=== PATIENT | male | born 1965 | race Caucasian/White ===

== ENCOUNTER 2017-10-04 14:44 | Emergency (ER) | payer OTHER ==
[2017-10-04] MEDS ORDERED: Sodium Chloride 0.9% 10 ML Syringe FLUSH PRN (15:17)
[2017-10-04 16:23] VITALS: BP 139/76
--- NOTE | 2017-10-04 16:36 | EDM.PDOC ---
ED HPI GENERAL MEDICAL PROBLEM - General Chief Complaint: Chest Pain Stated Complaint: CHEST PAIN Time Seen by Provider: 10/04/17 14:44 Source of Information: Reports: Patient, Provider History Limitations: Reports: No Limitations - History of Present Illness INITIAL COMMENTS - FREE TEXT/NARRATIVE: One of the clinic doctors called over about this patient's who is been having some chest pain. He had 2 stents placed in the circumflex artery in July 2016. His pain started 2 days ago and occurred after doing some workout in the gym. He describes the pain in the left precordial area tightness in the neck and pain rating radiating back to the left scapula. He did take some nitroglycerin but it didn't seem to help. He takes aspirin 81 mg daily as well as Plavix 75 mg daily and he has not missed any of his medications. The pain he' s having now is very similar to what he had previously. It's noted that the there were both fixed and reversible defects in the septum on the nuclear stress test. He underwent stent placement at the [facility] and had 2 stents placed in the circumflex artery. He has a long-standing left bundle branch block Left Shoulder Pain Score (Numeric/FACES): 1 - Related Data Allergies Allergy/AdvReac Type Severity Reaction Status Date / Time erythromycin base Allergy Stomach Verified 10/04/17 14:53 Upset Home Meds: Home Meds Allopurinol [Allopurinol] 300 mg PO DAILY 07/05/15 [History] Esomeprazole Magnesium [Nexium] 20 mg PO DAILY 07/05/15 [History] Albuterol Sulfate [Proair Hfa] 2 puff IH Q4H PRN 05/03/16 [History] Aspirin [Halfprin] 81 mg PO DAILY 05/03/16 [History] Cetirizine [ZyrTEC] 10 mg PO DAILY 05/03/16 [History] Ibuprofen 200 mg PO Q6H PRN 05/03/16 [History] Metoprolol Tartrate [Lopressor] 50 mg PO BID 05/03/16 [History] Nitroglycerin [Nitrostat] 0.4 mg SL ASDIRECTED PRN 05/03/16 [History] amLODIPine Besylate [Norvasc] 5 mg PO DAILY 05/03/16 [History] Clopidogrel Bisulfate [Clopidogrel] 1 tab PO DAILY 10/04/17 [History] atorvaSTATin [Lipitor] 1 tab PO BEDTIME 10/04/17 [History] Past Medical History HEENT History: Reports: Impaired Vision Cardiovascular History: Reports: CAD, High Cholesterol, Hypertension, [place], Stents Respiratory History: Reports: Asthma Gastrointestinal History: Reports: GERD Neurological History: Reports: Migraines - Past Surgical History HEENT Surgical History: Reports: Tonsillectomy Cardiovascular Surgical History: Reports: Coronary Artery Stent Other Cardiovascular Surgeries/Procedures: Angiogram 2010 Social & Family History - Tobacco Use Smoking Status *Q: Never Smoker Second Hand Smoke Exposure: No - Recreational Drug Use Recreational Drug Use: No ED ROS GENERAL - Review of Systems Review Of Systems: ROS reveals no pertinent complaints other than HPI. ED EXAM, GENERAL - Physical Exam Exam: See Below Exam Limited By: No Limitations General Appearance: Alert, WD/WN, No Apparent Distress Eye Exam: Bilateral Eye: Normal Inspection Throat/Mouth: Normal Inspection Respiratory/Chest: Lungs Clear, Chest Non-Tender Cardiovascular: Normal Peripheral Pulses, Regular Rate, Rhythm Back Exam: Normal Inspection Extremities: Normal Inspection, Normal Range of Motion, No Pedal Edema Neurological: Alert, Oriented Psychiatric: Normal Affect, Normal Mood Skin Exam: Warm, Dry Course - Vital Signs Last Recorded V/S: Last Vital Signs Temp 97.6 C H 10/04/17 14:50 Pulse 59 L 10/04/17 16:22 Resp 14 10/04/17 16:22 BP 139/76 10/04/17 16:22 Pulse Ox 98 10/04/17 16:22 - Orders/Labs/Meds Orders: Active Orders 24 hr Category Date Time Status EKG Documentation Completion [RC] ASDIRECTED Care 10/04/17 15:17 Ordered Chest 1V Frontal [CR] Urgent Exams 10/04/17 15:17 Ordered Sodium Chloride 0.9% [Saline Flush] Med 10/04/17 15:17 Ordered 10 ml FLUSH ASDIRECTED PRN Saline Lock Insert [OM.PC] Urgent Oth 10/04/17 15:17 Ordered EKG 12 Lead [EK] Urgent Ther 10/04/17 15:17 Ordered Medication Orders Sodium Chloride (Saline Flush) 10 ml FLUSH ASDIRECTED PRN PRN Reason: Keep Vein Open Labs: Laboratory Tests 10/04/17 10/04/17 Range/Units 15:17 15:17 WBC 6.2 (4.5-11.0) K/uL RBC 4.91 (4.30-5.90) M/uL Hgb 15.5 H (12.0-15.0) g/dL Hct 44.6 (40.0-54.0) % MCV 91 (80-98) fL MCH 32 H (27-31) pg MCHC 35 (32-36) % Plt Count 181 (150-400) K/uL Neut % (Auto) 58 (36-66) % Lymph % (Auto) 28 (24-44) % [place] % (Auto) 9 H (2-6) % Eos % (Auto) 5 H (2-4) % Baso % (Auto) 1 (0-1) % Sodium 139 L (140-148) mmol/L Potassium 4.3 (3.6-5.2) mmol/L Chloride 105 (100-108) mmol/L Carbon Dioxide 29 (21-32) mmol/L Anion Gap 9.3 (5.0-14.0) mmol/L BUN 20 H (7-18) mg/dL Creatinine 1.1 (0.8-1.3) mg/dL Est Cr Clr Drug Dosing 79.45 mL/min Estimated GFR (MDRD) > 60 (>60) Glucose 117 H (74-106) mg/dL Calcium 9.0 (8.5-10.1) mg/dL Total Bilirubin 0.4 (0.2-1.0) mg/dL AST 29 (15-37) U/L ALT 50 (12-78) U/L Alkaline Phosphatase 69 (46-116) U/L Troponin I < 0.017 (0.000-0.056) ng/mL Total Protein 6.4 (6.4-8.2) g/dL Albumin 3.8 (3.4-5.0) g/dL Globulin 2.6 (2.3-3.5) g/dL Albumin/Globulin Ratio 1.5 (1.2-2.2) Meds: Medications Generic Name Dose Route Start Last Admin Trade Name Freq PRN Reason Stop Dose Admin Sodium Chloride 10 ml 10/04/17 15:17 Saline Flush FLUSH ASDIRECTED PRN Keep Vein Open - Radiology Interpretation Free Text/Narrative:: Chest x-ray shows no acute abnormalities. There is a nodule in the right chest but that's been biopsied previously and has not changed since 2015 - Re-Assessments/Exams Free Text/Narrative Re-Assessment/Exam: 10/04/17 16:42 EKG shows sinus rhythm at 54 bpm with left bundle branch block labs are unremarkable and troponin is negative. Patient's just had some vague minor discomfort here in the emergency department and has not experienced any severe pain. I spoke with Dr. West the [employer] retailer sales consultant at [facility] and he would like to do a rule out [place] inpatient and would like him transferred to the [facility]. He has we go ahead and give him aspirin 600 Plavix if he's not oriented course he is taking Plavix now as well as heparin drip and bolus and those interventions have been begun. Departure - Departure Time of Disposition: 16:44 Disposition: DC/Tfer to Acute Hospital 02 Reason for Transfer *Q: Primary PCI Indicated Condition: Fair Clinical Impression: Acute coronary syndrome Referrals: Kami Estes MD [Primary Care Provider] - - My Orders Last 24 Hours: My Active Orders 10/04/17 15:17 EKG Documentation Completion [RC] ASDIRECTED Chest 1V Frontal [CR] Urgent Sodium Chloride 0.9% [Saline Flush] 10 ml FLUSH ASDIRECTED PRN Saline Lock Insert [OM.PC] Urgent EKG 12 Lead [EK] Urgent - Assessment/Plan Last 24 Hours: My Active Orders 10/04/17 15:17 EKG Documentation Completion [RC] ASDIRECTED Chest 1V Frontal [CR] Urgent Sodium Chloride 0.9% [Saline Flush] 10 ml FLUSH ASDIRECTED PRN Saline Lock Insert [OM.PC] Urgent EKG 12 Lead [EK] Urgent
[2017-10-04] MEDS ORDERED: Aspirin 81 MG Tab.Chew PO ONE (16:45)
[2017-10-04] MEDS ORDERED: Heparin Sodium 5,000 Units/ML Vial IVPUSH ONE (16:47)
[2017-10-04] MEDS ORDERED: Heparin Sodium/D5W 25,000 UNITS/500 ML BAG IV SCH ×2 (17:00→18:00)
--- NOTE | 2017-10-05 09:03 | CR ---
Chest 1V Frontal HISTORY: Pain COMPARISON: Chest x-ray 07/05/2015. CT scan 08/21/2012 FINDINGS: Nodular density right lower lung zone unchanged or less apparent than prior studies likely representing scarring. This appeared to of been larger on prior CT scan. No new infiltrates. Cardiac size and pulmonary vessels normal. Impression: Probable scarring right lower lung zone. This was seen on CT scan 2011 and favors granulomatous scarr ing. On 2012 CT scan there was some adjacent areas of nodularity also less apparent on today's study. This does not appear to be an acute process. No acute infiltrates.
== END 2017-10-04 17:25 ==
LOC: JP.ED 14:44
DX: I24.9 Acute ischemic heart disease, unspecified (principal); E78.00 Pure hypercholesterolemia, unspecified; I10 Essential (primary) hypertension; Z88.1 Allergy status to other antibiotic agents; Z79.899 Other long term (current) drug therapy; Z79.82 Long term (current) use of aspirin
CPT/HCPCS: 36415; 71045; 80053; 84484; 85025; 93005; 96374; 99285; A9270; J1644; J7050

== ENCOUNTER 2019-10-28 06:29 | Day surgery (SDC) | payer OTHER ==
[2019-10-28] MEDS ORDERED: Sodium Chloride 0.9% 1,000 ML IV SCH (07:00)
[2019-10-28] MEDS ORDERED: fentaNYL 100 MCG/2 ML SDV ONE (07:16)
[2019-10-28] MEDS ORDERED: Midazolam 1 MG/ML 2 ML SDV ONE (07:17)
[2019-10-28] MEDS ORDERED: Propofol 200 MG/20 ML SDV ONE (07:17)
[2019-10-28 09:37] VITALS: BP 114/74; PULSE 49
--- NOTE | 2019-10-28 11:23 | PROC ---
DATE OF PROCEDURE: 10/28/2019 SURGEON: Juan Manuel Dave MD PROCEDURE: Colonoscopy. PREPROCEDURE DIAGNOSIS: Screening colonoscopy. POSTPROCEDURE DIAGNOSES: 1. Screening colonoscopy. 2. Pandiverticulosis. 3. Mild limited sigmoid colitis. DESCRIPTION OF PROCEDURE: Risks and goals of procedure reviewed with the patient, and he gave informed consent to proceed. He was brought back to the endoscopy room. Sedation and monitoring provided by the Anesthesia Service. Time-out was held prior to the procedure to confirm right patient, right site, right procedure, and identify any specific concerns about the procedure, of which there were none. He was placed in left lateral decubitus position. After adequate sedation was achieved, digital rectal exam was performed, which was unremarkable. Following this, a flexible colonoscope was placed and advanced out through the colon to the cecum. Scope was then slowly withdrawn through the length of the colon to the rectum, where it was retroflexed, straightened, and removed. He was noted to have pandiverticulosis throughout the length of the colon including ascending, transverse, descending, and sigmoid colon. There was a limited area of mild colitis and inflammation in the sigmoid colon at approximately 20 cm to 30 cm. Biopsies were obtained through this area. Procedure was, otherwise, completed without complication. He will be monitored in PAR in outpatient area until fully recovered from IV sedation and discharged home. Pathologic review of the biopsy specimens is pending at this time. Juan Manuel Dave MD /[id number]
== END 2019-10-28 09:15 | disposition home or self-care (01) ==
LOC: JP.SDS 06:29
PROVIDERS: ATTEND Hospitalist
DX: Z12.11 Encounter for screening for malignant neoplasm of colon (principal); K57.30 Diverticulosis of large intestine without perforation or abscess without bleeding; K52.9 Noninfective gastroenteritis and colitis, unspecified; J45.909 Unspecified asthma, uncomplicated; Z88.1 Allergy status to other antibiotic agents
CPT/HCPCS: 45378; J2250; J2704; J3010; J7030; 88305

== ENCOUNTER 2020-06-05 23:33 | Emergency (ER) | payer OTHER ==
[2020-06-05 23:49] VITALS: BP 158/80; PULSE 61
--- NOTE | 2020-06-06 00:05 | EDM.PDOC ---
ED HPI GENERAL MEDICAL PROBLEM - General Chief Complaint: Chest Pain Stated Complaint: CHEST PAIN Time Seen by Provider: 06/05/20 23:35 Source of Information: Reports: Patient, Family History Limitations: Reports: No Limitations - History of Present Illness INITIAL COMMENTS - FREE TEXT/NARRATIVE: 54-year-old male with known coronary artery disease, history of stent placement x2 has been having increasing chest pain over the past month. Today he had significant and recurring pain especially while active and tonight seemed to respond to nitroglycerin so came in to be seen. He is feeling better now. He does not get short of breath, but he does get diaphoretic with nausea when he is having the pain. It feels similar to symptoms he had prior to getting stents in the past. He received stents in 2016, and 2018. Onset: Unknown/Unsure (Past been getting recurrent symptoms for weeks) Location: Reports: Chest Improves with: Reports: Other (Nitroglycerin seemed to improve his pain) Worsens with: Reports: Other (Worsening of the pain is somewhat random and not necessarily related to activity) Associated Symptoms: Reports: Diaphoresis, Nausea/Vomiting (Nausea but no vomiting). Denies: Shortness of Breath chest pain Pain Score (Numeric/FACES): 3 - Related Data Allergies Allergy/AdvReac Type Severity Reaction Status Date / Time bacitracin Allergy Rash Verified 06/05/20 23:39 erythromycin base Allergy Stomach Verified 06/05/20 23:39 Upset Home Meds: Home Meds allopurinoL [Allopurinol] 300 mg PO DAILY 07/05/15 [History] Albuterol Sulfate [Proair Hfa] 2 puff IH Q4H PRN 05/03/16 [History] Aspirin [Halfprin] 81 mg PO DAILY 05/03/16 [History] Ibuprofen 200 mg PO Q6H PRN 05/03/16 [History] Metoprolol Tartrate [Lopressor] 50 mg PO DAILY 05/03/16 [History] Nitroglycerin [Nitrostat] 0.4 mg SL ASDIRECTED PRN 05/03/16 [History] atorvaSTATin [Lipitor] 80 mg PO DAILY 10/04/17 [History] lisinopriL [Lisinopril] 2.5 mg PO DAILY 10/24/19 [History] Past Medical History HEENT History: Reports: Allergic Rhinitis, Impaired Vision Cardiovascular History: Reports: CAD, High Cholesterol, Hypertension, [place], Stents Respiratory History: Reports: Asthma, Bronchitis, Recurrent Gastrointestinal History: Reports: GERD Musculoskeletal History: Reports: Fracture Neurological History: Reports: Migraines - Past Surgical History HEENT Surgical History: Reports: Eye Surgery, Tonsillectomy Cardiovascular Surgical History: Reports: Coronary Artery Stent Other Cardiovascular Surgeries/Procedures: Angiogram 2010 Respiratory Surgical History: Reports: None GI Surgical History: Reports: None Neurological Surgical History: Reports: None Musculoskeletal Surgical History: Reports: None Social & Family History - Caffeine Use Caffeine Use: Reports: Coffee ED ROS GENERAL - Review of Systems Review Of Systems: See Below Constitutional: Reports: Malaise. Denies: Fever, Chills HEENT: Reports: No Symptoms Respiratory: Denies: Shortness of Breath Cardiovascular: Reports: Chest Pain. Denies: Palpitations GI/Abdominal: Reports: Nausea. Denies: Abdominal Pain, Vomiting Skin: Reports: Diaphoresis Neurological: Reports: No Symptoms Psychiatric: Reports: No Symptoms ED EXAM, GENERAL - Physical Exam Exam: See Below Exam Limited By: No Limitations General Appearance: Alert, No Apparent Distress Eye Exam: Bilateral Eye: Normal Inspection Head: Atraumatic Neck: Supple, Non-Tender Respiratory/Chest: Lungs Clear Cardiovascular: Regular Rate, Rhythm GI/Abdominal: Soft, Non-Tender Extremities: Normal Inspection. No: Pedal Edema Neurological: Alert, Oriented Psychiatric: Normal Affect, Normal Mood Skin Exam: Warm, Dry EKG INTERPRETATION QRS: LBBB Comparison: No Change (No significant change from September 2017) Course - Vital Signs Last Recorded V/S: Last Vital Signs Temp 97.4 F 06/05/20 23:50 Pulse 61 06/05/20 23:50 Resp 11 L 06/05/20 23:50 BP 158/80 H 06/05/20 23:50 Pulse Ox 96 06/05/20 23:50 - Orders/Labs/Meds Orders: Active Orders 24 hr Category Date Time Status EKG 12 Lead [EK] Routine Ther 06/05/20 23:53 Ordered Labs: Laboratory Tests 06/05/20 06/05/20 06/05/20 Range/Units 23:55 23:55 23:55 WBC 8.9 (4.5-11.0) K/uL RBC 4.91 (4.30-5.90) M/uL Hgb 14.9 (12.0-15.0) g/dL Hct 45.2 (40.0-54.0) % MCV 92 (80-98) fL MCH 30 (27-31) pg MCHC 33 (32-36) % Plt Count 212 (150-400) K/uL Neut % (Auto) 50 (36-66) % Lymph % (Auto) 31 (24-44) % [place] % (Auto) 11 H (2-6) % Eos % (Auto) 7 H (2-4) % Baso % (Auto) 1 (0-1) % Sodium 138 L (140-148) mmol/L Potassium 3.5 L (3.6-5.2) mmol/L Chloride 103 (100-108) mmol/L Carbon Dioxide 26 (21-32) mmol/L Anion Gap 12.5 (5.0-14.0) mmol/L BUN 29 H (7-18) mg/dL Creatinine 1.2 (0.8-1.3) mg/dL Est Cr Clr Drug Dosing TNP Estimated GFR (MDRD) > 60 (>60) Glucose 128 H (74-106) mg/dL Calcium 8.9 (8.5-10.1) mg/dL Total Bilirubin 0.3 (0.2-1.0) mg/dL AST 27 (15-37) U/L ALT 62 (12-78) U/L Alkaline Phosphatase 69 (46-116) U/L Troponin I < 0.017 (0.000-0.056) ng/mL Total Protein 6.7 (6.4-8.2) g/dL Albumin 3.7 (3.4-5.0) g/dL Globulin 3.0 (2.3-3.5) g/dL Albumin/Globulin Ratio 1.2 (1.2-2.2) - Re-Assessments/Exams Free Text/Narrative Re-Assessment/Exam: 06/06/20 00:04 Patient is already had a full dose aspirin today, after 2 nitroglycerin he is having no pain so no further treatment was given initially in the emergency room. Initial EKG showed a left bundle branch block consistent with findings in September 2017. CBC CMP and troponin were obtained. 06/06/20 01:21 Labs were normal, troponin was 0. Patient's pain did not return. He will continue his medications, and [facility]wood Sapp was contacted to have cardiology call him on Monday to set up an appointment to discuss whether any further studies are indicated. His pain returns and is persistent he will return. Continue his medication. 06/06/20 01:59 Patient was supplied with a fresh prescription of nitroglycerin. If he does not hear from cardiology by Monday afternoon, I encouraged him to call [facility] or Dr. De La Rosa in [place] to try to set up follow-up. Departure - Departure Time of Disposition: 01:24 Disposition: Home, Self-Care 01 Clinical Impression: Atypical chest pain - Discharge Information Instructions: Nonspecific Chest Pain, Adult, [id number] Referrals: Oren De La Rosa MD [Primary Care Provider] - Forms: ED Department Discharge Care Plan Goals: Continue your current medications, use nitroglycerin as needed for recurring pain and return to the emergency room if pain is persistent. You should be contacted by [facility] cardiology on Monday, if you do not hear from them call Dr. De La Rosa for recheck appointment. Sepsis Event Note (ED) - Evaluation Sepsis Screening Result: No Definite Risk - Focused Exam Vital Signs: Vital Signs Temp Pulse Resp BP Pulse Ox 06/05/20 23:50 97.4 F 61 11 L 158/80 H 96 06/05/20 23:39 97.4 F 61 11 L 158/80 H 96 - My Orders Last 24 Hours: My Active Orders 06/05/20 23:53 EKG 12 Lead [EK] Routine - Assessment/Plan Last 24 Hours: My Active Orders 06/05/20 23:53 EKG 12 Lead [EK] Routine
== END 2020-06-06 01:31 | disposition home or self-care (01) ==
LOC: JP.ED 23:33
DX: R07.89 Other chest pain (principal); I25.10 Atherosclerotic heart disease of native coronary artery without angina pectoris; E78.00 Pure hypercholesterolemia, unspecified; I10 Essential (primary) hypertension; I25.2 Old myocardial infarction; J45.909 Unspecified asthma, uncomplicated; Z95.5 Presence of coronary angioplasty implant and graft; Z88.1 Allergy status to other antibiotic agents; Z79.82 Long term (current) use of aspirin; Z79.899 Other long term (current) drug therapy
CPT/HCPCS: 36415; 80053; 84484; 85025; 93005; 93010; 99284; 99285-25

== ENCOUNTER 2021-02-21 07:43 | Emergency (ER) | payer OTHER ==
[2021-02-21 08:02] VITALS: BP 128/67; PULSE 53
[2021-02-21] MEDS ORDERED: Ketorolac 30 MG/ML SDV IVPUSH ONE (08:09)
[2021-02-21] MEDS ORDERED: Sodium Chloride 0.9% 10 ML Syringe FLUSH PRN (08:09)
[2021-02-21] MEDS ORDERED: Ondansetron 4 MG/2 ML SDV IVPUSH ONE (08:09)
--- NOTE | 2021-02-21 08:12 | EDM.PDOC ---
ED HPI GENERAL MEDICAL PROBLEM - General Chief Complaint: Flank Pain Stated Complaint: PAIN ON LEFT SIDE Time Seen by Provider: 02/21/21 08:07 Source of Information: Reports: Patient, Family, RN Notes Reviewed History Limitations: Reports: No Limitations - History of Present Illness INITIAL COMMENTS - FREE TEXT/NARRATIVE: 55-year-old gentleman presents emergency department day complaint of left flank pain, he states it come on early this morning is very intense starts in the back radiates around to the front he does have nausea but no vomiting does have a history of stones as well Left Flank Pain Score (Numeric/FACES): 10 - Related Data Allergies Allergy/AdvReac Type Severity Reaction Status Date / Time bacitracin Allergy Rash Verified 06/05/20 23:39 erythromycin base Allergy Stomach Verified 06/05/20 23:39 Upset Home Meds: Home Meds allopurinoL [Allopurinol] 300 mg PO DAILY 07/05/15 [History] Albuterol Sulfate [Proair Hfa] 2 puff IH Q4H PRN 05/03/16 [History] Aspirin [Halfprin] 81 mg PO DAILY 05/03/16 [History] Ibuprofen 200 mg PO Q6H PRN 05/03/16 [History] Metoprolol Tartrate [Lopressor] 50 mg PO DAILY 05/03/16 [History] Nitroglycerin [Nitrostat] 0.4 mg SL ASDIRECTED PRN 05/03/16 [History] atorvaSTATin [Lipitor] 80 mg PO DAILY 10/04/17 [History] lisinopriL [Lisinopril] 2.5 mg PO DAILY 10/24/19 [History] Past Medical History HEENT History: Reports: Allergic Rhinitis, Impaired Vision Other HEENT History: scleral lens Cardiovascular History: Reports: CAD, High Cholesterol, Hypertension, [place], Stents Other Cardiovascular History: LBBB Respiratory History: Reports: Asthma, Bronchitis, Recurrent Gastrointestinal History: Reports: GERD Musculoskeletal History: Reports: Fracture Neurological History: Reports: Migraines - Infectious Disease History Infectious Disease History: Reports: Chicken Pox - Past Surgical History HEENT Surgical History: Reports: Eye Surgery, Tonsillectomy Cardiovascular Surgical History: Reports: Coronary Artery Stent Other Cardiovascular Surgeries/Procedures: Angiogram 2010 Respiratory Surgical History: Reports: None GI Surgical History: Reports: None Neurological Surgical History: Reports: None Musculoskeletal Surgical History: Reports: None Social & Family History - Tobacco Use Tobacco Use Status *Q: Never Tobacco User - Caffeine Use Caffeine Use: Reports: Coffee - Recreational Drug Use Recreational Drug Use: No ED ROS GENERAL - Review of Systems Review Of Systems: See Below Constitutional: Reports: No Symptoms HEENT: Reports: No Symptoms Respiratory: Reports: No Symptoms Cardiovascular: Reports: No Symptoms GI/Abdominal: Reports: Nausea. Denies: Vomiting : Reports: Flank Pain ED EXAM, RENAL/ - Physical Exam Exam: See Below Exam Limited By: No Limitations General Appearance: Alert, Mild Distress Respiratory/Chest: No Respiratory Distress, Lungs Clear, Normal Breath Sounds, No Accessory Muscle Use, Chest Non-Tender Cardiovascular: Regular Rate, Rhythm, No Murmur GI/Abdominal: Soft, No Distention, Tender (Along the left flank). No: Guarding, Rigid Course - Vital Signs Last Recorded V/S: Last Vital Signs Temp 94.7 F L 02/21/21 08:03 Pulse 53 L 02/21/21 08:03 Resp 18 02/21/21 08:03 BP 128/67 02/21/21 08:03 Pulse Ox 98 02/21/21 08:03 - Orders/Labs/Meds Orders: Active Orders 24 hr Category Date Time Status Peripheral IV Care [RC] . DIRECTED Care 02/21/21 08:10 Active Sodium Chloride 0.9% [Saline Flush] Med 02/21/21 08:09 Active 10 ml FLUSH ASDIRECTED PRN Peripheral IV Insertion Adult [OM.PC] Urgent Oth 02/21/21 08:09 Ordered Medication Orders Sodium Chloride (Sodium Chloride 0.9% 10 Ml Syringe) 10 ml FLUSH ASDIRECTED PRN PRN Reason: Keep Vein Open Last Admin: 02/21/21 08:17 Dose: 10 ml Documented by: SILVANO Meds: Medications Generic Name Dose Route Start Last Admin Trade Name Freq PRN Reason Stop Dose Admin Sodium Chloride 10 ml 02/21/21 08:09 02/21/21 08:17 Sodium Chloride 0.9% 10 Ml Syringe FLUSH 10 ml ASDIRECTED PRN Administration Keep Vein Open Discontinued Medications Generic Name Dose Route Start Last Admin Trade Name Freq PRN Reason Stop Dose Admin Fentanyl 50 mcg 02/21/21 09:28 Fentanyl 100 Mcg/2 Ml Sdv IVPUSH 02/21/21 09:29 ONETIME ONE Ketorolac Tromethamine 30 mg 02/21/21 08:09 02/21/21 08:17 Ketorolac 30 Mg/Ml Sdv IVPUSH 02/21/21 08:10 30 mg ONETIME ONE Administration Ondansetron HCl 4 mg 02/21/21 08:09 02/21/21 08:17 Ondansetron 4 Mg/2 Ml Sdv IVPUSH 02/21/21 08:10 4 mg ONETIME ONE Administration Tamsulosin HCl 0.4 mg 02/21/21 09:28 Tamsulosin 0.4 Mg Cap.Er PO 02/21/21 09:29 ONETIME ONE Departure - Departure Time of Disposition: 09:30 Disposition: Home, Self-Care 01 Condition: Fair Clinical Impression: Nephrolithiasis - Discharge Information Instructions: Kidney Stones, [id number] Referrals: Oren De La Rosa MD [Primary Care Provider] - Forms: ED Department Discharge Additional Instructions: Use Toradol for baseline pain control, use hydrocodone for breakthrough pain, continue to take the Flomax daily to help with passage of the stone, please followup with your primary care provider in 3-5 days if not better, please call return to the emergency department with worsening of symptoms. Sepsis Event Note (ED) - Evaluation Sepsis Screening Result: No Definite Risk - Focused Exam Vital Signs: Vital Signs Temp Pulse Resp BP Pulse Ox 02/21/21 08:03 94.7 F L 53 L 18 128/67 98 02/21/21 08:01 94.7 F L 53 L 18 128/67 98 - My Orders Last 24 Hours: My Active Orders 02/21/21 08:09 Sodium Chloride 0.9% [Saline Flush] 10 ml FLUSH ASDIRECTED PRN Peripheral IV Insertion Adult [OM.PC] Urgent 02/21/21 08:10 Peripheral IV Care [RC] . DIRECTED - Assessment/Plan Last 24 Hours: My Active Orders 02/21/21 08:09 Sodium Chloride 0.9% [Saline Flush] 10 ml FLUSH ASDIRECTED PRN Peripheral IV Insertion Adult [OM.PC] Urgent 02/21/21 08:10 Peripheral IV Care [RC] . DIRECTED Plan: Assessment Acuity = acute Site and laterality = nephrolithiasis Etiology = unknown Manifestations = left flank pain Location of injury = Home Lab values = CT scanning describes a 3 mm stone at the UPJ partially obstructing Plan He had good relief with the Toradol prescription written for ketorolac 10 mg one tab p.o. 3 times daily as needed total #20 as well as hydrocodone 5/325 one tab p.o. 3 times daily total #10 prescription was also written for Flomax 0.4 mg 1 tablet daily total #10 he will follow-up with his primary care in 3 to 5 days if not better This note was dictated using [employer] voice recognition software please call with any questions on syntax or grammar.
--- NOTE | 2021-02-21 09:17 | CRLCT ---
For Patients: As a result of the Century Cures Act, medical imaging exams and procedure reports are released immediately into your electronic medical record. You may view this report before your referring provider. If you have questions, please contact your health care provider. INDICATION: Left flank. TECHNIQUE: CT of the abdomen and pelvis performed without oral or IV contrast. FINDINGS: Degenerative disc disease and moderate narrowing L5 interspace. Moderate osteopenia. Scattered multiple tiny and small bilateral renal calculi. Small hiatal hernia. Few small and tiny uncalcified nodules in the lingula and left lower lobe should be benign. 3 mm partially obstructing stone in the left UVJ results in mild hydronephrosis and ureteral dilatation as well as mild perinephric and to lesser extent periureteral diffuse soft tissue stranding and fluid. Conglomeration of chris hepatis, portacaval, peripancreatic, and right celiac access adenopathy with lymph node masses measuring up to 3.0 x 1.8 cm on image 58 is of indeterminate etiology. Small periumbilical lower anterior abdominal wall hernia. Colonic diverticulosis. Appendix is normal. Very small bilateral hydroceles. Remainder negative. IMPRESSION: 1. 3 mm partially obstructing stone in the left UVJ results in mild hydronephrosis and other findings of ureteral obstruction as detailed above. 2. Scattered bilateral tiny and small renal calculi 3. Small hiatal hernia. 4. Few nodules in the left mid and lower lung likely benign. 5. Borderline moderate conglomerate right mid and upper abdominal adenopathy is indeterminate. Given the age greeted of lymph node prominence, one could consider reassessing with a followup CT in 4 months for stability. Other findings as above. Please note that all CT scans at this facility use dose modulation, iterative reconstruction, and/or weight-based dosing when appropriate to reduce radiation dose to as low as reasonably achievable. Dictated by Darren Paniagua MD @ 02/21/2021 9:15:[address] Darren Paniagua @ Feb 21 2021 9:15AM
[2021-02-21] MEDS ORDERED: Tamsulosin 0.4 MG Cap.ER PO ONE (09:28)
[2021-02-21] MEDS ORDERED: fentaNYL 100 MCG/2 ML SDV IVPUSH ONE (09:28)
== END 2021-02-21 09:55 | disposition home or self-care (01) ==
LOC: JP.ED 07:43
DX: N13.2 Hydronephrosis with renal and ureteral calculous obstruction (principal); I25.10 Atherosclerotic heart disease of native coronary artery without angina pectoris; E78.00 Pure hypercholesterolemia, unspecified; I25.2 Old myocardial infarction; I10 Essential (primary) hypertension; Z95.5 Presence of coronary angioplasty implant and graft; Z79.899 Other long term (current) drug therapy; Z88.1 Allergy status to other antibiotic agents
CPT/HCPCS: 74176; 96374; 96375; 99284; A9270; J1885; J2405

== ENCOUNTER 2022-03-31 10:03 | Day surgery (SDC) | payer OTHER ==
[2022-03-31] MEDS ORDERED: Dextrose 5%-Lactated Ringers 1,000 ML IV SCH (10:30)
[2022-03-31] MEDS ORDERED: fentaNYL 100 MCG/2 ML SDV ONE (11:10)
[2022-03-31] MEDS ORDERED: Propofol 200 MG/20 ML SDV ONE (11:10)
[2022-03-31] MEDS ORDERED: Midazolam 1 MG/ML 2 ML SDV ONE (11:10)
[2022-03-31 13:12] VITALS: BP 120/78; PULSE 47
[2022-03-31] MEDS ORDERED: Ondansetron 4 MG/2 ML SDV IVPUSH ONE (13:30)
== END 2022-03-31 13:59 | disposition home or self-care (01) ==
LOC: JP.SDS 10:03
PROVIDERS: ATTEND Surgery
DX: K29.60 Other gastritis without bleeding (principal); K44.9 Diaphragmatic hernia without obstruction or gangrene; K21.9 Gastro-esophageal reflux disease without esophagitis; I25.2 Old myocardial infarction; J45.909 Unspecified asthma, uncomplicated; E66.9 Obesity, unspecified; Z68.33 Body mass index [BMI] 33.0-33.9, adult; Z01.812 Encounter for preprocedural laboratory examination; Z20.822 Contact with and (suspected) exposure to COVID-19; Z88.1 Allergy status to other antibiotic agents
CPT/HCPCS: 43239; 87081; 87635; 88305; J2250; J2405; J2704; J3010; J7121; U0002

== ENCOUNTER 2022-04-26 08:00 | Day surgery (SDC) | payer OTHER ==
[~2022-04-26 08:00] MED LIST: Dexamethasone 4 MG/ML SDV ONE; Glycopyrrolate 0.2 MG/ML 5 ML MDV ONE; Neostigmine Methylsulfate 1 MG/ML 5 ML Syringe ONE; Ondansetron 4 MG/2 ML SDV ONE; Propofol 200 MG/20 ML SDV ONE; Rocuronium 50 MG/5 ML Vial ONE; Succinylcholine 200 MG/10 ML MDV ONE; fentaNYL 250 MCG/5 ML SDV ONE
[2022-04-26] MEDS ORDERED: Albuterol/Ipratropium 3.0-0.5 MG/3 ML Neb Soln NEB ONE (08:15)
[2022-04-26] MEDS ORDERED: Acetaminophen 500 MG Tab PO ONE (08:15)
[2022-04-26] MEDS ORDERED: Dextrose 5%-Lactated Ringers 1,000 ML IV SCH (08:15)
[2022-04-26] MEDS ORDERED: Bupivacaine 0.5% 30 ML SDV ONE (08:43)
[2022-04-26] MEDS ORDERED: Lidocaine 1% with EPINEPHrine 1:100,000 50 ML MDV ONE (08:43)
[2022-04-26] MEDS ORDERED: Scopolamine 1.5 MG Transdermal Patch TOP SCH (09:00)
[2022-04-26] MEDS ORDERED: ceFAZolin 2 GM in Sodium Chloride 0.9% 50 ML IV ONE (09:30)
[2022-04-26] MEDS ORDERED: Ketamine 500 MG/5 ML MDV IV SCH (09:30)
[2022-04-26] MEDS ORDERED: EPINEPHRINE NERVRT SCH ×4 (09:30)
[2022-04-26] MEDS ORDERED: Ketamine 21 MG in Sodium Chloride 0.9% 19.79 ML IV SCH (09:30)
[2022-04-26] MEDS ORDERED: ROPIVACAINE NERVRT SCH ×4 (09:30)
[2022-04-26] MEDS ORDERED: [UNRECOGNIZED DRUG - OTHER] NERVRT SCH ×4 (09:30)
[2022-04-26] MEDS ORDERED: DEXAMETHASONE NERVRT SCH ×4 (09:30)
[2022-04-26] MEDS ORDERED: fentaNYL 250 MCG/5 ML SDV ONE (10:27)
[2022-04-26] MEDS ORDERED: Cyclobenzaprine 10 MG Tab PO PRN (13:15)
[2022-04-26] MEDS ORDERED: Nitroglycerin 0.4 MG Tab.SL SL PRN (13:24)
[2022-04-26] MEDS ORDERED: Albuterol/Ipratropium 3.0-0.5 MG/3 ML Neb Soln INH PRN (14:00)
[2022-04-26] MEDS ORDERED: hydrOXYzine HCL 100 MG/2 ML SDV IM PRN (14:00)
[2022-04-26] MEDS ORDERED: HYDROmorphone 1 MG/ML Syringe IV PRN (14:00)
[2022-04-26] MEDS ORDERED: Ondansetron 4 MG/2 ML SDV IVPUSH PRN (14:00)
[2022-04-26] MEDS ORDERED: HYDROmorphone 0.5 MG/0.5 ML Syringe IVPUSH PRN (14:00)
[2022-04-26] MEDS: SCOPOLAMINE PATCH CHECK TOP SCH (14:01)
[2022-04-26] MEDS: Albuterol/Ipratropium 3.0-0.5 MG/3 ML Neb Soln INH SCH ×2 (14:35→20:30)
[2022-04-26] MEDS: Acetaminophen 500 MG Tab PO SCH ×2 (14:51→20:27)
[2022-04-26] MEDS ORDERED: Pantoprazole 40 MG Vial IVPUSH SCH (16:00)
[2022-04-26] MEDS: ceFAZolin 2 GM in Sodium Chloride 0.9% 50 ML IV SCH (16:39)
[2022-04-26] MEDS: Dextrose 5%-Lactated Ringers 1,000 ML IV SCH (19:26)
[2022-04-26] MEDS ORDERED: atorvaSTATin 20 MG Tab PO SCH (21:00)
[2022-04-27] MEDS: ceFAZolin 2 GM in Sodium Chloride 0.9% 50 ML IV SCH ×2 (00:21→08:14)
[2022-04-27] MEDS: Dextrose 5%-Lactated Ringers 1,000 ML IV SCH (02:38)
[2022-04-27] MEDS: Acetaminophen 500 MG Tab PO SCH ×2 (02:39→08:13)
[2022-04-27] MEDS: Albuterol/Ipratropium 3.0-0.5 MG/3 ML Neb Soln INH SCH (07:08)
[2022-04-27 08:13] VITALS: BP 124/48
[2022-04-27 08:19] VITALS: PULSE 59
[2022-04-27] MEDS: SCOPOLAMINE PATCH CHECK TOP SCH (08:20)
[2022-04-27] MEDS ORDERED: Metoprolol Succinate 50 MG Tab.ER PO SCH (09:00)
[2022-04-27] MEDS ORDERED: Aspirin 81 MG Tab.EC PO SCH (09:00)
[2022-04-27] MEDS ORDERED: Allopurinol 100 MG Tab PO SCH (09:00)
[2022-04-27] MEDS ORDERED: Lisinopril 2.5 MG Tab PO SCH (09:00)
[2022-04-27] MEDS ORDERED: Metoprolol Tartrate 50 MG Tab PO SCH (09:00)
== END 2022-04-27 10:05 | disposition home or self-care (01) ==
LOC: JP.SDS 08:00 → EDSTATUS 08:45 → JP.MS 12:15 → UNDOADMIN 12:15 → UNDODISIN 04-27 10:05 → JP.SDS 04-27 10:05
PROVIDERS: ATTEND Surgery
DX: K21.9 Gastro-esophageal reflux disease without esophagitis (principal); K44.9 Diaphragmatic hernia without obstruction or gangrene; D17.1 Benign lipomatous neoplasm of skin and subcutaneous tissue of trunk; J45.909 Unspecified asthma, uncomplicated; I44.7 Left bundle-branch block, unspecified; E78.5 Hyperlipidemia, unspecified; I25.9 Chronic ischemic heart disease, unspecified; I10 Essential (primary) hypertension; Z79.02 Long term (current) use of antithrombotics/antiplatelets; Z79.899 Other long term (current) drug therapy; Z79.82 Long term (current) use of aspirin; Z88.1 Allergy status to other antibiotic agents; Z79.83 Long term (current) use of bisphosphonates; Z79.810 Long term (current) use of selective estrogen receptor modulators (SERMs)
CPT/HCPCS: 36415; 39220; 43282; 49203; 83735; 83880; 84100; 88304; 88305; 88341; 88342; 94640; A9270; C1713; C1781; C9113; J0171; J0330; J0690; J1100; J2405; J2704; J2710; J2795; J3010; J3490; J7121; J7620

== ENCOUNTER 2023-08-13 01:59 | Emergency (ER) | payer OTHER ==
[2023-08-13] MEDS ORDERED: Ondansetron 4 MG/2 ML SDV IVPUSH ONE (02:38)
[2023-08-13] MEDS ORDERED: Sodium Chloride 0.9% 1,000 ML IV SCH ×2 (02:45→04:00)
[2023-08-13 02:50] LABS: BASOPHILS ABSOLUTE AUTO 0.07 K/uL (0.00-0.10); BASOPHILS PERCENT AUTO 0.9 % (0.1-1.3); EOSINOPHILS ABSOLUTE AUTO 0.13 K/uL (0.00-0.40); EOSINOPHILS PERCENT AUTO 1.6 % (0.0-5.4); HEMATOCRIT 43.7 % (38.4-49.7); HEMOGLOBIN 15.3 g/dL (12.9-16.9); IMMATURE GRAN ABSOLUTE AUTO 0.03 K/uL (0.00-0.23); IMMATURE GRAN PERCENT AUTO 0.4 % (0.0-0.7); LYMPHOCYTES ABSOLUTE AUTO 1.44 K/uL (0.8-3.3); LYMPHOCYTES PERCENT AUTO 17.7 % (11.4-47.7); MEAN CORPUSCULAR HEMOGLOBIN 31.7 pg (31.6-35.5); MEAN CORPUSCULAR VOLUME 90.5 fL (81.4-99.0); MONOCYTES ABSOLUTE AUTO 0.65 K/uL (0.20-0.90); NEUTROPHILS ABSOLUTE AUTO 5.82 K/uL (1.0-7.6); NEUTROPHILS PERCENT AUTO 71.4 % (40.0-78.1); PLATELET COUNT,PLT 203 K/uL (130-375); RED BLOOD CELL COUNT 4.83 M/uL (4.14-5.76); WHITE BLOOD CELL COUNT,WBC 8.1 K/uL (3.2-11.0)
[2023-08-13 03:06] LABS: A/G RATIO 1.3 (1.2-2.2); ALANINE AMINOTRANSFERASE,ALT 54 U/L (12-78); ALBUMIN 3.9 g/dL (3.4-5.0); ALKALINE PHOSPHATASE 72 U/L (46-116); ASPARTATE AMNIOTRANSFERASE,AST 39 U/L (15-37); BILIRUBIN TOTAL 0.7 mg/dL (0.2-1.0); BLOOD UREA NITROGEN,BUN 17 mg/dL (7-18); CALCIUM 9.2 mg/dL (8.5-10.1); CARBON DIOXIDE,CO2 28 mmol/L (21-32); CHLORIDE,CL 101 mmol/L (100-108); CREATININE 1.2 mg/dL (0.8-1.3); EST CRCL DRUG DOSING (CG) 67.92 mL/min; ESTIMATED GFR 71 mL/min (>60); GLUCOSE RANDOM 118 mg/dL (74-106); POTASSIUM,K 4.1 mmol/L (3.6-5.2); SODIUM,NA 137 mmol/L (140-148)
[2023-08-13 03:08] LABS: ANION GAP 12.1 mmol/L (5.0-14.0)
[2023-08-13 03:29] LABS: CORONAVIRUS COVID-19 NAA NEGATIVE (NEGATIVE); INFLUENZA A NAA NEGATIVE (NEGATIVE); INFLUENZA B NAA NEGATIVE (NEGATIVE); RESPIRATORY SYNCYTIAL VIR NAA NEGATIVE (NEGATIVE)
[2023-08-13] MEDS ORDERED: Iopamidol 612 MG/ML 100 ML Bottle IV STA (04:16)
[2023-08-13] MEDS ORDERED: Sodium Chloride 0.9% 50 ML IV STA (04:16)
[2023-08-13 05:51] LABS: APPEARANCE,URINE CLEAR (CLEAR); BILIRUBIN,URINE NEGATIVE (NEGATIVE); COLOR,URINE YELLOW (YELLOW); GLUCOSE,URINE NEGATIVE (NEGATIVE); KETONES,URINE TRACE mg/dL (NEGATIVE); LEUKOCYTE ESTERASE,URINE NEGATIVE (NEGATIVE); NITRITE,URINE NEGATIVE (NEGATIVE); OCCULT BLOOD,URINE TRACE-INTACT (NEGATIVE); PROTEIN,URINE NEGATIVE (NEGATIVE); UROBILINOGEN,URINE 0.2 EU/dL (0.2-1.0)
[2023-08-13 06:02] LABS: AMORPHOUS SEDIMENT,URINE RARE; BACTERIA,URINE NOT SEEN; EPITHELIAL CELLS,URINE NOT SEEN; MUCUS,URINE NOT SEEN; RBC,URINE NOT SEEN (0-5); WBC,URINE NOT SEEN (0-5)
[2023-08-13] MEDS ORDERED: Pantoprazole 40 MG Vial IVPUSH ONE (06:07)
[2023-08-13 07:09] VITALS: BP 145/78; PULSE 56
== END 2023-08-13 06:30 | disposition home or self-care (01) ==
LOC: JP.ED 01:59
DX: E86.0 Dehydration (principal); R11.10 Vomiting, unspecified; I25.10 Atherosclerotic heart disease of native coronary artery without angina pectoris; E78.00 Pure hypercholesterolemia, unspecified; I10 Essential (primary) hypertension; Z88.1 Allergy status to other antibiotic agents; Z79.899 Other long term (current) drug therapy; Z79.82 Long term (current) use of aspirin; Z20.822 Contact with and (suspected) exposure to COVID-19
CPT/HCPCS: 0241U; 36415; 74177; 80053; 81001; 83690; 84484; 85025; 86140; 93005; 93010; 96361; 96374; 96375; 99284; C9113; J2405; J3490; J7030; Q9967

== ENCOUNTER 2025-08-23 04:47 | Emergency (ER) | payer MEDICAID, OTHER ==
[2025-08-23] MEDS: Ketorolac 30 MG/ML SDV IVPUSH ONE (05:55)
[2025-08-23] MEDS: Ondansetron 4 MG/2 ML SDV IVPUSH ONE (05:55)
[2025-08-23 07:28] LABS: APPEARANCE,URINE CLEAR (CLEAR); GLUCOSE,URINE NEGATIVE (NEGATIVE); OCCULT BLOOD,URINE NEGATIVE (NEGATIVE)
[2025-08-23 07:30] VITALS: BP 127/65; PULSE 51
== END 2025-08-23 08:22 | disposition home or self-care (01) ==
LOC: JP.ED 04:47
DX: N13.2 Hydronephrosis with renal and ureteral calculous obstruction (principal); I10 Essential (primary) hypertension; I25.10 Atherosclerotic heart disease of native coronary artery without angina pectoris; I25.2 Old myocardial infarction; J45.909 Unspecified asthma, uncomplicated; Z79.899 Other long term (current) drug therapy; Z88.1 Allergy status to other antibiotic agents; Z88.8 Allergy status to other drugs, medicaments and biological substances; Z86.16 Personal history of COVID-19
CPT/HCPCS: 74176; 81003; 96374; 96375; 99284; J1885; J2405